=== PATIENT | male | born 1960 | race Caucasian/White ===

== ENCOUNTER 2021-03-29 06:28 | Emergency (ER) | payer OTHER, SELFPAY ==
--- NOTE | ~2021-03-29 | XR_ITS ---
EXAMINATION: XR chest 2V DATE: 03/29/2021 07:48 INDICATION: Cough. Sinus congestion. TECHNIQUE: Frontal and lateral views of the chest were obtained. COMPARISON: None. FINDINGS: The chest demonstrates clear lungs without pneumonia, pleural effusion, or pneumothorax. Th e heart size is normal. IMPRESSION: 1. No acute cardiopulmonary disease. Reviewed, dictated and finalized at location A. MACHINERY MECHANIC
[2021-03-29 06:32] VITALS: BP 137/76; PULSE 87; RESP 19; TEMP 36.2; O2SAT 100
--- NOTE | 2021-03-29 07:32 | ED.URI ---
HPI - URI/Sore Throat General Chief Complaint: Upper Respiratory Infection Stated Complaint: Productive cough Time Seen by Provider: 03/29/21 06:55 Source: patient History of Present Illness HPI Narrative: Patient presents with cough and shortness of breath. Patient first had symptoms for the past 3 days was seen in urgent care and discharged home. As his cough is getting worse so he came to the ER for evaluation. His cough is productive of yellow-brownish sputum is not appreciating congestion or fevers without any known sick contacts he does against Covid. Denies any chest pain nausea vomiting or diarrhea Related Data Allergies Allergy/AdvReac Type Severity Reaction Status Date / Time No Known Allergies Allergy Verified 03/29/21 06:39 Review of Systems Review of Systems: CONSTITUTIONAL: Denies fever, chills, or sweats. EYES: Denies visual changes, redness, or discharge. ENT: Denies rhinorrhea, congestion, sore throat, or otalgia. CARDIOVASCULAR: Denies chest pain, palpitations, or edema. RESPIRATORY: Reports cough and shortness of breath GASTROINTESTINAL: Denies abdominal pain, nausea, vomiting, or diarrhea. GENITOURINARY: Denies dysuria or hematuria. SKIN: Denies rash or itching. MUSCULOSKELETAL: Denies back pain, joint pain, or myalgia. NEUROLOGIC: Denies headache, numbness, dizziness, or weakness. PSYCHIATRIC: Denies anxiety or depression. All systems reviewed & are unremarkable except as noted in HPI and below PMFSH Past Medical History Medical History (Updated 03/29/21 @ 08:16 by Boris Tidwell MD) Patient denies significant medical history Social History Social History (Updated 03/29/21 @ 07:33 by Boris Tidwell MD) Smoking status: Never smoker Alcohol intake: current Substance use: never Exam Narrative: GENERAL: Well-appearing, well-nourished, and in no acute distress. HEAD: Normocephalic, atraumatic. EYES: PERRLA and EOMI. ENT: Nares clear, no rhinorrhea or epistaxis. Mucous membranes moist. NECK: Supple. No masses. No JVD CHEST: Clear to auscultation. No respiratory distress. No wheezes rales or rhonchi HEART: Regular rate and rhythm. No murmur heard. Normal peripheral pulses. ABDOMEN: Soft, nontender, nondistended, normal active bowel sounds. EXTREMITIES: Normal range of motion. No edema. SKIN: Warm, dry, no rash. NEURO: No focal deficits. Alert and oriented x3. PSYCH: Normal mood and affect. Course Reevaluation(s) Reevaluation #1: Patient resting comfortably results and plan reviewed with patient. Patient comfortable outpatient plan. Date: 03/29/21 Time: 08:15 Vital Signs Vital signs: Vital Signs Temperature 36.2 C L 03/29/21 06:32 Pulse Rate 87 03/29/21 06:32 Respiratory Rate 19 03/29/21 06:32 Blood Pressure 137/76 03/29/21 06:32 Pulse Oximetry 100 03/29/21 06:32 Temperature 36.2 C L 03/29/21 06:32 Pulse Rate 87 03/29/21 06:32 Respiratory Rate 19 03/29/21 06:32 Blood Pressure 137/76 03/29/21 06:32 Pulse Oximetry 100 03/29/21 06:32 MDM - URI/Sore Throat MDM Narrative Medical decision making narrative: H&P as above, vss, pt looks clinically well, exam with clear lungs, labs with negative influenza Covid is pending, img clinically unremarkable, additional labs/img considered, symptomatic relief available as needed, on reevaluation pt continues to looks clinically well. Suspect viral bronchitis, dns pneumonia, severe sepsis, PE. plan to tx/monitor as op w/ pcm f/u findings/plan discussed with pt, pt agree/comfortable with plan, return precautions given Lab Data Labs: Lab Results 03/29/21 Range/Units 07:30 SARS-CoV-2 RNA (RT-PCR) Pending Influenza A Screen Negative Reference Range: Negative Influenza B Screen Negative Reference Range: Negative Imaging Data Radiologist's impression: Impressions Linda
[2021-03-29 17:30] LABS: SARS-CoV-2 RNA PCR Negative
== END 2021-03-29 09:29 | disposition home or self-care (01) ==
PROVIDERS: Emergency Provider Emergency Medicine
DX: J40 Bronchitis, not specified as acute or chronic (principal); Z20.822 Contact with and (suspected) exposure to COVID-19
CPT/HCPCS: 71046; 87804; 99283; C9803; U0003; U0005

== ENCOUNTER 2023-12-28 23:40 | Emergency (ER) | payer OTHER, SELFPAY ==
[2023-12-28 23:44] VITALS: BP 142/77; PULSE 62; RESP 15; TEMP 36.2; O2SAT 100
--- NOTE | 2023-12-29 00:42 | ED.ALLEREA ---
HPI - Allergic Reaction General Chief complaint: Allergic Reaction Stated complaint: allergic reaction to L arm Time Seen by Provider: 12/29/23 00:11 Source: patient Mode of arrival: ambulatory Limitations: no limitations History of Present Illness HPI narrative: This is a 63-year-old male that presents to the emergency department for an itchy rash to the left forearm. Reports he was stung by a bee about 1 week ago. The area has become more red and itchy today. He applied Benadryl cream. Denies fevers or pain. Related Data Allergies Allergy/AdvReac Type Severity Reaction Status Date / Time No Known Allergies Allergy Verified 03/29/21 06:39 Review of Systems Review of Systems: CONSTITUTIONAL: Denies fever SKIN: Reports rash and itching. All systems reviewed & are unremarkable except as noted in HPI and below PMFSH Past Medical History Medical History (Updated 12/29/23 @ 00:47 by Desire Izquierdo PA-C) Patient denies significant medical history Social History Social History (Updated 03/29/21 @ 07:33 by Boris TidwellMD) Smoking status: Never smoker Alcohol intake: current Substance use: never Exam Narrative: GENERAL: Well-appearing, well-nourished, and in no acute distress. HEAD: Normocephalic, atraumatic. EYES: EOMI. EXTREMITIES: Normal range of motion. No edema. Red, papular rash to the left forearm with excoriations SKIN: Warm, dry NEURO: No focal deficits. Alert and oriented x3. PSYCH: Normal mood and affect Course Course Emergency Course: Patient agrees with plan of care Vital Signs Vital signs: Vital Signs Temperature 97.2 F L 12/28/23 23:44 Pulse Rate 62 12/28/23 23:44 Respiratory Rate 15 12/28/23 23:44 Blood Pressure 142/77 H 12/28/23 23:44 Pulse Oximetry 100 12/28/23 23:44 Oxygen Delivery Room Air 12/28/23 23:44 Temperature 97.2 F L 12/28/23 23:44 Pulse Rate 62 12/28/23 23:44 Respiratory Rate 15 12/28/23 23:44 Blood Pressure 142/77 H 12/28/23 23:44 Pulse Oximetry 100 12/28/23 23:44 Oxygen Delivery Room Air 08/13/24 23:44 MDM - Allergic Reaction MDM Narrative Medical decision making narrative: Patient presents to the ER for itchy rash to the left forearm after insect sting. Patient will be started on oral antihistamines and steroid taper. He is to follow up with primary provider. He was given warnings to return to the ER Differential Diagnosis Differential diagnosis: Likely allergic reaction, contact dermatitis and urticaria Critical Care Time Critical Care Time Critical Care Time: No Discharge Plan Discharge Clinical Impression: Allergic reaction Qualifiers: Encounter type: initial encounter Qualified Code(s): T78.40XA - Allergy, unspecified, initial encounter Insect sting Qualifiers: Encounter type: initial encounter Injury intent: accidental or unintentional Qualified Code(s): T63.481A - Toxic effect of venom of other arthropod, accidental (unintentional), initial encounter Patient Disposition: Home, Self-Care Condition: Stable Instructions: Insect Bite or Sting (ED) Additional Instructions: Return to the emergency department if you experience fever, worsening redness and swelling of your arm, abnormal drainage from your wounds, or any other symptoms that are concerning to you Take a Pepcid and Zyrtec daily. Take steroid taper as prescribed. Benadryl as needed for severe itching Follow-up with primary care doctor Prescriptions: New prednisone 10 mg tablet 10 mg PO DAILY Qty: 45 0RF Rx Instructions: 5 tabs daily for 3 days, 4 tabs daily for 3 days, 3 tabs daily for 3 days, 2 tabs daily for 3 days, 1 tab daily for 3 days No Action albuterol sulfate 90 mcg/actuation HFA aerosol inhaler 2 inh inhalation QID PRN (Reason: shortness of breath or wheezing) Qty: 6.7 0RF Follow-up/Referrals: PHYSICIAN,DENTAL TECHNICIAN INSTRUCTOR [Primary Care Provider] - Richard Goodson MD [Physician] -
[2023-12-29] MEDS: predniSONE 20 MG TABLET 60 MG PO (01:05)
[2023-12-29] MEDS: FAMOTIDINE 20 MG TABLET PO (01:06)
[2023-12-29] MEDS: diphenhydrAMINE HCl CAP 25 MG CAPSULE PO (01:06)
[2023-12-29 01:11] VITALS: O2SAT 97
[2023-12-29 01:13] VITALS: BP 138/74; PULSE 64; RESP 16; O2SAT 99
== END 2023-12-29 01:16 | disposition home or self-care (01) ==
PROVIDERS: Emergency Provider Physician Assistant
DX: T63.481A Toxic effect of venom of other arthropod, accidental (unintentional), initial encounter (principal); R21 Rash and other nonspecific skin eruption
CPT/HCPCS: 99283; A9270; J7512